=== PATIENT | male | born 1960 | race Caucasian/White ===

== ENCOUNTER 2023-11-02 06:00 | Day surgery (SDC) | payer OTHER ==
[~2023-11-02 06:00] MED LIST: Lactated Ringers 1,000 ML IV SCH; Sodium Chloride 0.9% 10 ML Syringe FLUSH PRN; Sodium Chloride 0.9% 10 ML Syringe FLUSH SCH
[2023-11-02] MEDS ORDERED: Propofol 200 MG/20 ML SDV ONE ×3 (06:10→07:55)
[2023-11-02] MEDS ORDERED: Dexamethasone 4 MG/ML 5 ML MDV ONE (06:10)
[2023-11-02] MEDS ORDERED: Rocuronium 50 MG/5 ML Vial ONE (06:10)
[2023-11-02] MEDS ORDERED: dexmedeTOMIDine HCl 200 MCG/2 ML SDV ONE (06:10)
[2023-11-02] MEDS ORDERED: Midazolam 1 MG/ML 2 ML SDV ONE (06:11)
[2023-11-02] MEDS ORDERED: fentaNYL 100 MCG/2 ML SDV ONE (06:11)
[2023-11-02] MEDS: Lactated Ringers 1,000 ML IV SCH (06:15)
[2023-11-02] MEDS: VANCOmycin 1.25 GM/250 ML 1.25 GM in Premix Bag 1 BAG IV ONE (06:26)
[2023-11-02] MEDS ORDERED: EPINEPHrine 1 MG/ML SDV ONE ×2 (06:27→06:28)
[2023-11-02] MEDS ORDERED: Ropivacaine 0.5% 5 MG/ML 30 ML SDV ONE (06:41)
[2023-11-02] MEDS ORDERED: Ondansetron 4 MG/2 ML SDV ONE (07:14)
[2023-11-02] MEDS ORDERED: ceFAZolin 2 GM Vial ONE (07:16)
[2023-11-02] MEDS ORDERED: ePHEDrine 50 MG/ML SDV ONE (07:27)
[2023-11-02] MEDS ORDERED: Sugammadex Sodium 200 MG/2 ML VIAL IV ONE (08:02)
[2023-11-02] MEDS ORDERED: Acetaminophen/HYDROcodone 325-5 MG Tab PO PRN (08:41)
[2023-11-02] MEDS ORDERED: Sodium Chloride 0.9% 10 ML Syringe FLUSH SCH (09:00)
[2023-11-02] MEDS: Bupivacaine 0.25% 10 ML SDV ONE (15:54)
== END 2023-11-02 11:00 | disposition home or self-care (01) ==
LOC: JD.SDS 06:00
PROVIDERS: ATTEND Orthopaedic Surgery
DX: M75.101 Unspecified rotator cuff tear or rupture of right shoulder, not specified as traumatic (principal); M75.21 Bicipital tendinitis, right shoulder; M94.211 Chondromalacia, right shoulder; I10 Essential (primary) hypertension; E78.5 Hyperlipidemia, unspecified; Z79.82 Long term (current) use of aspirin; Z79.899 Other long term (current) drug therapy; Z88.8 Allergy status to other drugs, medicaments and biological substances
CPT/HCPCS: 29822; 29826; 29827; 64415; C1713; J0171; J0665; J0690; J1100; J2250; J2405; J2704; J2795; J3010; J3372; J3490; J7120; 01630